=== PATIENT | male | born 1950 | race Two or more races ===

== ENCOUNTER 2017-05-28 12:55 | Inpatient (IN) | payer OTHER ==
[~2017-05-28] VITALS: Ht 152.4 cm; Wt 129.3 kg
[2017-05-28] MEDS ORDERED: COZAAR100 MG (13:23)
[2017-05-28] MEDS ORDERED: METFORMIN HCL500 M2 (13:23)
[2017-05-28] MEDS ORDERED: LEVOTHYROXINE25 MCG (13:24)
[2017-05-28] MEDS ORDERED: PLAVIX75 MG (13:25)
[2017-05-28] MEDS ORDERED: LIPITOR20 MG (13:25)
[2017-06-03] MEDS ORDERED: LEVAQUIN750 MG PO (10:58)
[2017-06-03] MEDS ORDERED: TAMS0.4C PO (10:58)
[2017-06-03] MEDS ORDERED: LOSARTAN POTASS25 MG PO (11:00)
[2017-06-03] MEDS ORDERED: PANTOPRAZOLE SO40 MG PO (11:01)
== END 2017-06-03 12:50 | disposition home or self-care (01) | DRG 194 ==
LOC: ER 12:55 → SURH 18:17
PROC: BW21ZZZ Computerized Tomography (CT Scan) of Abdomen and Pelvis (ICD-10-PCS; principal; 2017-05-28)
PROC: 4A033R1 Measurement of Arterial Saturation, Peripheral, Percutaneous Approach (ICD-10-PCS; 2017-05-28)
PROC: 3E0F7GC Introduction of Other Therapeutic Substance into Respiratory Tract, Via Natural or Artificial Opening (ICD-10-PCS; 2017-05-28)
DX: J10.1 Influenza due to other identified influenza virus with other respiratory manifestations (principal); N39.0 Urinary tract infection, site not specified; N41.0 Acute prostatitis; J44.1 Chronic obstructive pulmonary disease with (acute) exacerbation; K21.9 Gastro-esophageal reflux disease without esophagitis; E78.00 Pure hypercholesterolemia, unspecified; E03.8 Other specified hypothyroidism; I73.89 Other specified peripheral vascular diseases; I10 Essential (primary) hypertension; E11.9 Type 2 diabetes mellitus without complications